=== PATIENT | male | born 1955 | race Caucasian/White ===

== ENCOUNTER 2022-06-15 14:05 | Emergency (ER) | payer MEDICARE ==
[2022-06-15] MEDS ORDERED: Lidocaine 1% 5 ML VIAL INJECT ONE (15:00)
[2022-06-15] MEDS ORDERED: Diphtheria,Pertussis(Acell),Tetanus Vaccine 0.5 ML Syringe IM ONE (15:00)
[2022-06-15] MEDS ORDERED: Bacitracin Oint 1 GM U/D Packet TOP ONE (15:00)
== END 2022-06-15 15:36 | disposition home or self-care (01) ==
LOC: JP.ED 14:05
DX: S61.442A Puncture wound with foreign body of left hand, initial encounter (principal); Z23 Encounter for immunization; Z91.030 Bee allergy status; Z79.899 Other long term (current) drug therapy; W45.8XXA Other foreign body or object entering through skin, initial encounter
CPT/HCPCS: 90471; 90715; 99283-25